=== PATIENT | male | born 1970 | race Hispanic/Latino ===

== ENCOUNTER → 2020-01-18 | Outpatient (CLI) | payer OTHER ==
--- NOTE | 2020-01-18 17:23 | Diagnostic Imaging Report ---
EXAMINATION: CHEST 2 VIEWS INDICATION: Pneumonia COMPARISON: None FINDINGS: LINES/TUBES:None LUNGS:The lungs are well-inflated. No focal consolidation or pulmonary edema. PLEURA:No pleural effusion or pneumothorax. MEDIASTINUM:The cardiomediastinal silhouette appears normal in size and shape. BONES/SOFT TISSUES:No acute osseous injury. Degenerative changes of the visualized spine. ABDOMEN:No free air under the diaphragm. IMPRESSION: No focal pneumonia or pulmonary edema. Signed by: Christina Browne MD on 01/18/2020 5:21 PM
== END ==
LOC: RAD 16:22
PROVIDERS: ATTEND Family Medicine
DX: R05 Cough (principal)
CPT/HCPCS: 71046

== ENCOUNTER → 2020-07-05 | Outpatient (CLI) | payer OTHER ==
--- NOTE | 2020-07-05 12:16 | Diagnostic Imaging Report ---
EXAMINATION: CHEST 2 VIEWS INDICATION: Asthma COMPARISON: None FINDINGS: LINES/TUBES:None LUNGS:The lungs are mildly hyperinflated. No focal consolidation or pulmonary edema. PLEURA:No pleural effusion or pneumothorax. MEDIASTINUM:The cardiomediastinal silhouette appears normal in size and shape. BONES/SOFT TISSUES:No acute osseous injury. ABDOMEN:No free air under the diaphragm. IMPRESSION: Mildly hyperinflated lungs. No focal pneumonia or pulmonary edema. Signed by: Christina Browne MD on 07/05/2020 12:13 PM
== END ==
LOC: RAD 11:33
PROVIDERS: ATTEND Family Medicine
DX: J45.909 Unspecified asthma, uncomplicated (principal)
CPT/HCPCS: 71046